=== PATIENT | female | born 1940 | race Asian ===

== ENCOUNTER → 2022-10-30 | Outpatient (CLI) | payer OTHER ==
[2022-10-30 09:07] LABS: Basophils # (auto) 0.1 10 ^3/uL (0-0.2); Basophils % (auto) 1.7 % (0.0-2.0); Eosinophils # (auto) 0.2 10 ^3/uL (0-0.8); Eosinophils % (auto) 6.2 % (0.0-7.0); Hematocrit 46.6 % (36.0-46.0); Hemoglobin 15.2 g/dL (12.2-16.2); Lymphocytes # (auto) 1.7 10 ^3/uL (0.4-5.4); Lymphocytes % (auto) 44.6 % (10.0-50.0); Mean Corpuscular Hemoglobin 31.7 pg (28.0-32.0); Mean Corpuscular Hgb Conc. 32.6 g/dL (32.0-36.0); Mean Corpuscular Volume 97.1 fL (80.0-100.0); Monocytes # (auto) 0.3 10 ^3/uL (0-1.3); Neutrophils # (auto) 1.6 10 ^3/uL (1.6-8.6); Neutrophils % (auto) 40.5 % (37.0-80.0); Nucleated Red Blood Cells % 0.3 %; White Blood Cell 3.9 10^3/uL (4.4-10.8)
[2022-10-30 09:30] LABS: Urine Bacteria FEW /hpf (None Seen); Urine Blood Negative /uL (Negative); Urine Specific Gravity 1.014 (1.001-1.035); Urine WBC 5 /hpf (0 - 5)
[2022-10-30 09:37] LABS: Potassium 4.2 mmol/L (3.5-5.1)
[2022-10-30 09:44] LABS: Albumin 3.9 g/dL (3.4-5.0); BUN/Creatinine Ratio 27.5 (10.0-20.0); Bilirubin, Total 0.7 mg/dL (0.2-1.0); Calcium 9.3 mg/dL (8.5-10.1); Total Protein 7.5 g/dL (6.4-8.2); Uric Acid 7.2 mg/dL (2.6-6.0)
== END | disposition home or self-care (01) ==
LOC: LAB 08:24
PROVIDERS: ATTEND Internal Medicine
DX: Z00.00 Encounter for general adult medical examination without abnormal findings (principal); E11.69 Type 2 diabetes mellitus with other specified complication; E78.5 Hyperlipidemia, unspecified; E55.9 Vitamin D deficiency, unspecified; M10.9 Gout, unspecified
CPT/HCPCS: 36415; 80053; 80061; 81001; 82043; 82306; 82550; 83036; 84436; 84443; 84550; 85025; 87086

== ENCOUNTER → 2023-02-24 | Outpatient (CLI) | payer OTHER ==
[2023-02-24 07:51] LABS: Basophils # (auto) 0.1 10 ^3/uL (0-0.2); Eosinophils # (auto) 0.3 10 ^3/uL (0-0.8); Eosinophils % (auto) 7.9 % (0.0-7.0); Hematocrit 43.3 % (36.0-46.0); Hemoglobin 14.3 g/dL (12.2-16.2); Lymphocytes # (auto) 1.9 10 ^3/uL (0.4-5.4); Lymphocytes % (auto) 45.3 % (10.0-50.0); Monocytes # (auto) 0.4 10 ^3/uL (0-1.3); Monocytes % (auto) 9.9 % (0.0-12.0); Neutrophils # (auto) 1.5 10 ^3/uL (1.6-8.6); Neutrophils % (auto) 34.9 % (37.0-80.0); Red Blood Cells 4.46 10^6/uL (4.0-5.20); Red Cell Distribution Width 13.8 % (11.8-14.3); White Blood Cell 4.2 10^3/uL (4.4-10.8)
[2023-02-24 08:11] LABS: Urine Bacteria NONE SEEN /hpf (None Seen); Urine Blood Negative /uL (Negative); Urine Clarity Clear (Clear); Urine Color Yellow (Yellow); Urine Protein, UAD Negative (Negative); Urine Specific Gravity 1.017 (1.001-1.035); Urine Urobilinogen Normal (Negative); Urine WBC 7 /hpf (0 - 5); Urine pH 5.5 (5.0-8.0)
[2023-02-24 08:42] LABS: Albumin 3.7 g/dL (3.4-5.0); Calcium 8.9 mg/dL (8.5-10.1); Potassium 4.3 mmol/L (3.5-5.1)
[2023-02-24 08:48] LABS: BUN/Creatinine Ratio 21.3 (10.0-20.0); Bilirubin, Total 0.6 mg/dL (0.2-1.0); Total Protein 7.1 g/dL (6.4-8.2); Uric Acid 7.7 mg/dL (2.6-6.0)
== END | disposition home or self-care (01) ==
LOC: LAB 07:06
PROVIDERS: ATTEND Internal Medicine
DX: Z00.00 Encounter for general adult medical examination without abnormal findings (principal); E11.69 Type 2 diabetes mellitus with other specified complication; E78.5 Hyperlipidemia, unspecified; M10.9 Gout, unspecified; E55.9 Vitamin D deficiency, unspecified
CPT/HCPCS: 36415; 80053; 80061; 81001; 82043; 82306; 82550; 83036; 84436; 84443; 84550; 85025; 87086

== ENCOUNTER 2023-06-07 02:47 | Inpatient (IN) | payer OTHER ==
[~2023-06-07] VITALS: Ht 154.9 cm; Wt 80.1 kg
[2023-06-07] VITALS (11 sets, daily range): BP systolic 68–130; BP diastolic 24–60; PULSE 72–107; RESP 13–40; TEMP 100.5; O2SAT 87–93
[2023-06-07 04:01] LABS: Basophils # (auto) 0 10 ^3/uL (0-0.2); Basophils % (auto) 0.3 % (0.0-2.0); Eosinophils # (auto) 0.1 10 ^3/uL (0-0.8); Eosinophils % (auto) 1.5 % (0.0-7.0); Hematocrit 45.4 % (36.0-46.0); Lymphocytes # (auto) 0.4 10 ^3/uL (0.4-5.4); Lymphocytes % (auto) 10.3 % (10.0-50.0); Mean Corpuscular Hemoglobin 32.6 pg (28.0-32.0); Mean Corpuscular Volume 98.9 fL (80.0-100.0); Monocytes # (auto) 0 10 ^3/uL (0-1.3); Monocytes % (auto) 1.3 % (0.0-12.0); Neutrophils # (auto) 3.2 10 ^3/uL (1.6-8.6); Neutrophils % (auto) 86.6 % (37.0-80.0); Nucleated Red Blood Cells % 0.1 %; Red Blood Cells 4.59 10^6/uL (4.0-5.20); White Blood Cell 3.7 10^3/uL (4.4-10.8)
[2023-06-07 04:14] LABS: Rapid Influenza A Negative (Negative); Rapid Influenza B Negative (Negative)
[2023-06-07 04:17] LABS: COVID19 ANTIGEN SOFIA FIA POSITIVE (NEGATIVE)
[2023-06-07 04:32] LABS: Alanine Aminotransferase 36 U/L (7-40); Albumin 4.2 g/dL (3.2-4.8); Alkaline Phosphatase 63 U/L (46-116); Anion Gap 10 (5-15); Aspartate Aminotransferase 54 U/L (13-40); BUN/Creatinine Ratio 24.2 (10.0-20.0); Bilirubin, Total 0.6 mg/dL (0.2-1.0); Blood Urea Nitrogen 23 mg/dL (9-23); Calcium 8.8 mg/dL (8.7-10.4); Carbon Dioxide 22 mmol/L (20-30); Chloride 109 mmol/L (98-107); Glucose 138 mg/dL (74-106); Potassium 4.9 mmol/L (3.5-5.1); Sodium 141 mmol/L (136-145); Total Protein 6.7 g/dL (5.7-8.2)
[2023-06-07] MEDS ORDERED: ACETAMINOPHEN 500 MG TAB PO PRN (05:45)
[2023-06-07] MEDS ORDERED: REMDESIVIR PER PHARMACY 0 ML IV SCH (05:45)
[2023-06-07] MEDS ORDERED: ALBUTEROL SULF HFA 90MCG INH 200DOSE IN PRN ×2 (05:45)
[2023-06-07 06:57] LABS: Urine Bacteria NONE SEEN /hpf (None Seen); Urine Blood Negative /uL (Negative); Urine Clarity Clear (Clear); Urine Color Yellow (Yellow); Urine Hyaline Cast FEW /lpf (0 - 2); Urine Mucus FEW (None Seen); Urine Protein, UAD 1+ (Negative); Urine Specific Gravity 1.022 (1.001-1.035); Urine Urobilinogen Normal (Negative); Urine WBC 13 /hpf (0 - 5); Urine pH 5.5 (5.0-8.0)
[2023-06-07] MEDS ORDERED: DexAMETHasone SOD PHOS 10MG/1ML VIAL INJ IV ONE (07:00)
[2023-06-07] MEDS ORDERED: ZINC SULFATE 220mg CAP or TAB PO ONE (07:00)
[2023-06-07] MEDS ORDERED: HEPARIN SODIUM (PORCINE) 5000 UNITS/ML 1ML VIAL IV ONE (07:00)
[2023-06-07] MEDS ORDERED: PIPERACILLIN-TAZOB 3.375GM 100 ML IV ONE (07:00)
[2023-06-07] MEDS ORDERED: PROMETHAZINE W/CODEINE 5 ML ORAL SYRUP PO ONE (07:00)
[2023-06-07] MEDS ORDERED: AZITHROMYCIN 500MG/ 250ML 250 ML IV ONE (07:00)
[2023-06-07 07:03] LABS: Base Excess -10.8 mmol/L (-2.0-2.0)
[2023-06-07 07:04] LABS: CRP High Sensitivity 0.06 mg/dL (<1.0)
[2023-06-07 07:14] LABS: Magnesium 1.4 mg/dL (1.6-2.6)
[2023-06-07 08:14] LABS: Lactic Acid w/Reflex 4.4 mmol/L (0.4-2.0)
[2023-06-07] MEDS ORDERED: SODIUM CHLORIDE 0.9% 500 ML IV ONE (08:15)
[2023-06-07] MEDS ORDERED: IOHEXOL 350 MG/ML 100ML IJ ONE (09:02)
[2023-06-07] MEDS ORDERED: NOREPINEPHRINE 8 MG/250ML KIT 250 ML IV ONE (09:07)
[2023-06-07] MEDS: NOREPINEPHRINE 8 MG/250ML KIT 250 ML IV SCH ×2 (09:21→16:44)
[2023-06-07 09:25] LABS: Base Excess -12.7 mmol/L (-2.0-2.0)
[2023-06-07] MEDS ORDERED: REMDESIVIR 200 MG in NS 210ml LOADING DOSE ADULT IV ONE (10:00)
[2023-06-07] MEDS: ZINC SULFATE 220mg CAP or TAB PO SCH (10:00)
[2023-06-07] MEDS: ASCORBIC ACID 1,000 MG TAB PO SCH (10:00)
[2023-06-07] MEDS ORDERED: BUDESONIDE (INHALATION) 180 MCG IH IN SCH (10:00)
[2023-06-07] MEDS: CHOLECALCIFEROL (VITD3) 2,000 UNIT CAP/TAB PO SCH (10:00)
[2023-06-07 10:52] LABS: Thyroid Stimulating Hormone 2.28 uIU/mL (0.358-3.74)
[2023-06-07] MEDS ORDERED: DEXTROSE (50%) 50ML SYRG IV PRN (11:00)
[2023-06-07] MEDS ORDERED: NITROGLYCERIN 0.4 MG SL TAB SL PRN (11:00)
[2023-06-07] MEDS ORDERED: MORPHINE SULFATE INJ 2 MG/ml SYRG IV PRN (11:00)
[2023-06-07] MEDS ORDERED: SUCCINYLCHOLINE CHLORIDE 20 MG/ML 10ML VIAL IV ONE (11:45)
[2023-06-07] MEDS ORDERED: ETOMIDATE (2MG/ML) 20ML VIAL IV ONE (11:45)
[2023-06-07] MEDS: ACCU-CHEK COMFORT CURVE STRIP VI SCH ×2 (12:00→17:47)
[2023-06-07] MEDS: MIDAZOLAM DRIP 50 mg/50mL 50 ML IV SCH ×3 (12:25→23:00)
[2023-06-07] MEDS ORDERED: PROPOFOL 100 ML IV ONE (13:00)
[2023-06-07] MEDS: PROPOFOL 100 ML IV SCH (13:25)
[2023-06-07] MEDS: SODIUM CHLOR 0.9% PF (SALINE LOCK) 10ML VIAL/SYR IV SCH ×2 (13:27→22:00)
[2023-06-07] MEDS: cefTRIAXone 1GM/50ML D5W 50 ML IV SCH (13:33)
[2023-06-07] MEDS: DexAMETHasone SOD PHOS 10MG/1ML VIAL INJ IV SCH (13:33)
[2023-06-07] MEDS: InsuLIN REG 1unit/0.01ml Soln (100units/ml) SC SCH ×2 (13:42→17:47)
[2023-06-07] MEDS ORDERED: ACETAMINOPHEN 650 MG RECT SUPP PR PRN (14:15)
[2023-06-07] MEDS: MAGNESIUM SULFATE 1GM/100ML 100 ML IV SCH ×2 (16:01→16:42)
[2023-06-07] MEDS: SOD CHL 0.45% 1,000 ML IV SCH (17:11)
[2023-06-07] MEDS ORDERED: ACETAMINOPHEN IV 1000 MG/100ML (10MG/ML) IV ONE (19:00)
[2023-06-07] MEDS: ALBUTEROL MEDNEB 2.5 mg/3ml NEB NEB SCH (19:19)
[2023-06-07] MEDS ORDERED: SODIUM BICARBONATE 8.4 % INJ 50ML VIAL IV SCH (20:45)
[2023-06-07] MEDS: PHENYLEPHRINE IV 250 ML IV SCH ×2 (20:59→23:35)
[2023-06-07] MEDS ORDERED: BUDESONIDE (INHALATION) 0.5 MG/2 ML NEB NEB SCH (22:00)
[2023-06-07] MEDS ORDERED: SODIUM BICARBONATE 8.4 % INJ 50ML VIAL IV ONE (22:15)
[2023-06-08] VITALS (63 sets, daily range): BP systolic 81–222; BP diastolic 36–77; PULSE 82–129; RESP 17–38; TEMP 95.7–98.6; O2SAT 85–98
[2023-06-08] MEDS: ACCU-CHEK COMFORT CURVE STRIP VI SCH ×4 (00:29→18:00)
[2023-06-08] MEDS: InsuLIN REG 1unit/0.01ml Soln (100units/ml) SC SCH ×4 (00:30→18:00)
[2023-06-08] MEDS ORDERED: SODIUM BICARBONATE 8.4 % INJ 50ML VIAL IV ONE ×3 (01:15→18:30)
[2023-06-08 01:35] LABS: Base Excess -16.2 mmol/L (-2.0-2.0)
[2023-06-08] MEDS: SODIUM CHLOR 0.9% PF (SALINE LOCK) 10ML VIAL/SYR IV SCH ×3 (06:00→22:00)
[2023-06-08] MEDS: SOD CHL 0.45% 1,000 ML IV SCH (06:20)
[2023-06-08] MEDS: ALBUTEROL MEDNEB 2.5 mg/3ml NEB NEB SCH ×3 (06:26→22:02)
[2023-06-08 06:27] LABS: Albumin 3.2 g/dL (3.2-4.8); Alkaline Phosphatase 36 U/L (46-116); Anion Gap 17 (5-15); Bilirubin, Total 0.5 mg/dL (0.2-1.0); Calcium 7.4 mg/dL (8.5-10.1); Carbon Dioxide 19 mmol/L (20-30); Chloride 101 mmol/L (98-107); Glucose 239 mg/dL (74-106); Sodium 137 mmol/L (136-145); Total Protein 5.4 g/dL (5.7-8.2)
[2023-06-08 06:51] LABS: Alanine Aminotransferase 33 U/L (7-40); Aspartate Aminotransferase 129 U/L (13-40); BUN/Creatinine Ratio 10.2 (10.0-20.0); Blood Urea Nitrogen 28 mg/dL (9-23); Potassium 4.5 mmol/L (3.5-5.1)
[2023-06-08] MEDS: PHENYLEPHRINE IV 250 ML IV SCH ×2 (07:55→12:00)
[2023-06-08 08:06] LABS: Hematocrit 49.2 % (36.0-46.0); Hemoglobin 15.7 g/dL (12.2-16.2); Mean Corpuscular Hemoglobin 32.2 pg (28.0-32.0); Mean Corpuscular Volume 100.6 fL (80.0-100.0); Red Blood Cells 4.89 10^6/uL (4.0-5.20); Red Cell Distribution Width 15.5 % (11.8-14.3); White Blood Cell 13.8 10^3/uL (4.4-10.8)
[2023-06-08 08:12] LABS: Basophils % (manual) 0 (0.0-2.0); Blast Cells 0; Eosinophils % (manual) 0 (0-7); Metamyelocytes % 0; Myelocytes % 0; Promyelocytes % 0; Reactive Lymphocytes 0
[2023-06-08] MEDS ORDERED: ACETAMINOPHEN 325 MG TAB PO PRN (08:30)
[2023-06-08] MEDS: fentaNYL Drip 2500mCg/250mlNS 250 ML IV SCH (08:35)
[2023-06-08 08:40] LABS: Base Excess -8.8 mmol/L (-2.0-2.0)
[2023-06-08 08:52] LABS: Band Neutrophils % (manual) 31; Lymphocytes % (manual) 12 (10.0-50.0); Monocytes % (manual) 8 (0-12)
[2023-06-08 08:53] LABS: Giant Platelets Few; Platelet Estimate Decreased
[2023-06-08] MEDS: cefTRIAXone 1GM/50ML D5W 50 ML IV SCH (09:45)
[2023-06-08] MEDS ORDERED: ENOXAPARIN SOD 40 MG/0.4 ML SYRINGE SC SCH (10:00)
[2023-06-08] MEDS: ZINC SULFATE 220mg CAP or TAB PO SCH (10:30)
[2023-06-08] MEDS: ASCORBIC ACID 1,000 MG TAB PO SCH (10:30)
[2023-06-08] MEDS: CHOLECALCIFEROL (VITD3) 2,000 UNIT CAP/TAB PO SCH (10:30)
[2023-06-08] MEDS ORDERED: FUROSEMIDE 40 MG/4 ML VIAL IV SCH (10:30)
[2023-06-08] MEDS: DexAMETHasone SOD PHOS 10MG/1ML VIAL INJ IV SCH (10:30)
[2023-06-08] MEDS: MULTIPLE VITAMIN TAB PO SCH (10:30)
[2023-06-08] MEDS: AZITHROMYCIN 500MG/ 250ML 250 ML IV SCH (12:01)
[2023-06-08 12:03] LABS: Base Excess -8.3 mmol/L (-2.0-2.0)
[2023-06-08] MEDS: PROPOFOL 100 ML IV SCH ×3 (12:49→21:55)
[2023-06-08] MEDS ORDERED: TOCILIZUMAB 400 MG in SODIUM CHL 0.9% 80 ML IV ONE (13:00)
[2023-06-08] MEDS: MIDAZOLAM DRIP 50 mg/50mL 50 ML IV SCH ×3 (13:04→20:36)
[2023-06-08] MEDS: NOREPINEPHRINE BITARTRATE 32 MG in SODIUM CHL 0.9% 218 ML IV SCH (13:04)
[2023-06-08] MEDS ORDERED: DOPamine 1600MCG/ML D5W 250 ML IV SCH (13:15)
[2023-06-08] MEDS: SODIUM BICARBONATE 50ML VIAL 50 ML in SOD CHL 0.45% 1,000 ML IV SCH (13:39)
[2023-06-08] MEDS: PHENYLEPHRINE INJ 80 MG in SODIUM CHL 0.9% 242 ML IV SCH (13:40)
[2023-06-08] MEDS: REMDESIVIR 100mg 100 MG in SODIUM CHL 0.9% 230 ML IV SCH (15:00)
[2023-06-08] MEDS ORDERED: ROCURONIUM 10MG/ML 10ML VIAL IV ONE (15:59)
[2023-06-08 16:09] LABS: Protein, Urine 215.3 mg/dL (0.0-11.9)
[2023-06-08 16:12] LABS: Creatinine, Urine 149.4 mg/dL (30.0-125.0); Urine Protein/Creatinine Ratio 1.44
[2023-06-08 18:25] LABS: Base Excess -12.2 mmol/L (-2.0-2.0)
[2023-06-08] MEDS ORDERED: AMIODARONE 450mg/250ml AE 250 ML IV SCH (18:30)
[2023-06-08] MEDS ORDERED: METF-370 PO (21:11)
[2023-06-08] MEDS ORDERED: ATEN-60 PO (21:11)
[2023-06-08] MEDS ORDERED: LOSA25TA15 PO (21:11)
[2023-06-08] MEDS ORDERED: ATOR10TA PO (21:11)
[2023-06-08] MEDS ORDERED: AMLO1TAB22 PO (21:11)
[2023-06-09] VITALS (104 sets, daily range): BP systolic 72–290; BP diastolic -43–117; PULSE 71–110; RESP 19–20; TEMP 96.8–99.7; O2SAT 84–99
[2023-06-09] MEDS: MIDAZOLAM DRIP 50 mg/50mL 50 ML IV SCH ×7 (00:33→22:35)
[2023-06-09] MEDS: AMIODARONE 450mg/250ml AE 250 ML IV SCH ×2 (00:33→17:26)
[2023-06-09] MEDS: SODIUM BICARBONATE 50ML VIAL 50 ML in SOD CHL 0.45% 1,000 ML IV SCH ×3 (00:38→20:03)
[2023-06-09] MEDS: PROPOFOL 100 ML IV SCH ×5 (01:48→20:03)
[2023-06-09] MEDS: NOREPINEPHRINE BITARTRATE 32 MG in SODIUM CHL 0.9% 218 ML IV SCH ×2 (03:56→22:35)
[2023-06-09 04:19] LABS: Chloride 100 mmol/L (98-107); Phosphorus 6.1 mg/dL (2.4-5.1); Sodium 134 mmol/L (136-145)
[2023-06-09 04:20] LABS: BUN/Creatinine Ratio 11.5 (10.0-20.0); Potassium 4.9 mmol/L (3.5-5.1)
[2023-06-09 04:21] LABS: Blood Urea Nitrogen 39 mg/dL (9-23)
[2023-06-09 04:23] LABS: Calcium 5.9 mg/dL (8.7-10.4)
[2023-06-09 04:41] LABS: Alanine Aminotransferase 33 U/L (7-40); Albumin 2.5 g/dL (3.2-4.8); Alkaline Phosphatase 76 U/L (46-116); Anion Gap 11 (5-15); Aspartate Aminotransferase 123 U/L (13-40); BUN/Creatinine Ratio 10.9 (10.0-20.0); Bilirubin, Total 0.5 mg/dL (0.2-1.0); Blood Urea Nitrogen 37 mg/dL (9-23); Carbon Dioxide 22 mmol/L (20-30); Chloride 99 mmol/L (98-107); Glucose 156 mg/dL (74-106); Potassium 4.3 mmol/L (3.5-5.1); Sodium 132 mmol/L (136-145)
[2023-06-09 04:42] LABS: Total Protein 4.3 g/dL (5.7-8.2)
[2023-06-09 04:45] LABS: Glucose 183 mg/dL (74-106)
[2023-06-09 04:47] LABS: Hemoglobin 14.5 g/dL (12.2-16.2); Mean Corpuscular Hemoglobin 32.7 pg (28.0-32.0); Mean Corpuscular Hgb Conc. 33.8 g/dL (32.0-36.0); Mean Corpuscular Volume 96.9 fL (80.0-100.0); Red Blood Cells 4.44 10^6/uL (4.0-5.20); White Blood Cell 20.5 10^3/uL (4.4-10.8)
[2023-06-09 04:54] LABS: Basophils % (manual) 0 (0.0-2.0); Blast Cells 0; Eosinophils % (manual) 0 (0-7); Myelocytes % 0; Promyelocytes % 0; Reactive Lymphocytes 0
[2023-06-09 05:09] LABS: Calcium 5.8 mg/dL (8.7-10.4)
[2023-06-09 05:20] LABS: Anion Gap 16 (5-15); Carbon Dioxide 18 mmol/L (20-30)
[2023-06-09] MEDS: ACCU-CHEK COMFORT CURVE STRIP VI SCH ×5 (05:50→23:45)
[2023-06-09] MEDS: SODIUM CHLOR 0.9% PF (SALINE LOCK) 10ML VIAL/SYR IV SCH ×3 (05:50→22:34)
[2023-06-09] MEDS: InsuLIN REG 1unit/0.01ml Soln (100units/ml) SC SCH ×5 (05:50→23:46)
[2023-06-09] MEDS: ALBUTEROL MEDNEB 2.5 mg/3ml NEB NEB SCH ×3 (06:10→19:02)
[2023-06-09] MEDS: ROCURONIUM 10MG/ML 10ML VIAL IV PRN ×2 (06:33→16:00)
[2023-06-09] MEDS: CALCIUM GLUC 1,000mg/50ml-NS 50 ML IV SCH ×2 (08:11→10:02)
[2023-06-09 08:49] LABS: Base Excess -7.5 mmol/L (-2.0-2.0)
[2023-06-09 09:19] LABS: Band Neutrophils % (manual) 19; Lymphocytes % (manual) 3 (10.0-50.0); Metamyelocytes % 27; Monocytes % (manual) 2 (0-12); Platelet Estimate Decreased
[2023-06-09] MEDS ORDERED: CALCIUM GLUC 1,000mg/50ml-NS 50 ML IV ONE (09:53)
[2023-06-09] MEDS: PANTOPRAZOLE 40 MG/10 ML VIAL INJ IV SCH (10:06)
[2023-06-09] MEDS: MULTIPLE VITAMIN TAB PO SCH (10:06)
[2023-06-09] MEDS: ZINC SULFATE 220mg CAP or TAB PO SCH (10:06)
[2023-06-09] MEDS: DexAMETHasone SOD PHOS 10MG/1ML VIAL INJ IV SCH (10:06)
[2023-06-09] MEDS: CHOLECALCIFEROL (VITD3) 2,000 UNIT CAP/TAB PO SCH (10:06)
[2023-06-09] MEDS: ASCORBIC ACID 1,000 MG TAB PO SCH (10:07)
[2023-06-09] MEDS: FUROSEMIDE INJECTION 100 MG in D5W 5% 100 ML IV SCH ×2 (11:04→18:07)
[2023-06-09] MEDS: cefTRIAXone 1GM/50ML D5W 50 ML IV SCH (11:05)
[2023-06-09] MEDS: AZITHROMYCIN 500MG/ 250ML 250 ML IV SCH (12:12)
[2023-06-09] MEDS: REMDESIVIR 100mg 100 MG in SODIUM CHL 0.9% 230 ML IV SCH (15:00)
[2023-06-09] MEDS: fentaNYL Drip 2500mCg/250mlNS 250 ML IV SCH ×2 (15:30)
[2023-06-09] MEDS: PHENYLEPHRINE INJ 80 MG in SODIUM CHL 0.9% 242 ML IV SCH (17:26)
[2023-06-09 19:26] LABS: Base Excess -7.7 mmol/L (-2.0-2.0)
[2023-06-10] VITALS (63 sets, daily range): BP systolic 27–137; BP diastolic 13–70; PULSE 59–135; RESP 0–20; TEMP 97.2–99.3; O2SAT 85–96
[2023-06-10] MEDS: PROPOFOL 100 ML IV SCH ×3 (00:11→11:31)
[2023-06-10] MEDS: MIDAZOLAM DRIP 50 mg/50mL 50 ML IV SCH ×3 (02:39→10:31)
[2023-06-10] MEDS: FUROSEMIDE INJECTION 100 MG in D5W 5% 100 ML IV SCH (03:25)
[2023-06-10 04:02] LABS: Mean Corpuscular Volume 97.7 fL (80.0-100.0)
[2023-06-10 04:27] LABS: Hematocrit 39.9 % (36.0-46.0); Mean Corpuscular Hemoglobin 34.3 pg (28.0-32.0); Mean Corpuscular Hgb Conc. 35.2 g/dL (32.0-36.0); Red Blood Cells 4.08 10^6/uL (4.0-5.20); White Blood Cell 21.3 10^3/uL (4.4-10.8)
[2023-06-10 04:35] LABS: Basophils % (manual) 0 (0.0-2.0); Blast Cells 0; Eosinophils % (manual) 0 (0-7); Metamyelocytes % 0; Myelocytes % 0; Promyelocytes % 0; Reactive Lymphocytes 0
[2023-06-10] MEDS: ACCU-CHEK COMFORT CURVE STRIP VI SCH ×2 (05:53→12:51)
[2023-06-10] MEDS: SODIUM CHLOR 0.9% PF (SALINE LOCK) 10ML VIAL/SYR IV SCH (05:53)
[2023-06-10] MEDS: InsuLIN REG 1unit/0.01ml Soln (100units/ml) SC SCH ×2 (06:02→12:51)
[2023-06-10] MEDS: AMIODARONE 450mg/250ml AE 250 ML IV SCH (06:05)
[2023-06-10 06:50] LABS: Band Neutrophils % (manual) 24; Lymphocytes % (manual) 4 (10.0-50.0); Monocytes % (manual) 1 (0-12)
[2023-06-10 06:51] LABS: Platelet Estimate Markedly Decreased
[2023-06-10] MEDS: ALBUTEROL MEDNEB 2.5 mg/3ml NEB NEB SCH (06:56)
[2023-06-10] MEDS: fentaNYL Drip 2500mCg/250mlNS 250 ML IV SCH (07:16)
[2023-06-10] MEDS: SODIUM BICARBONATE 50ML VIAL 50 ML in SOD CHL 0.45% 1,000 ML IV SCH (07:56)
[2023-06-10 09:41] LABS: Base Excess -12.8 mmol/L (-2.0-2.0)
[2023-06-10] MEDS: PANTOPRAZOLE 40 MG/10 ML VIAL INJ IV SCH (10:37)
[2023-06-10] MEDS: cefTRIAXone 1GM/50ML D5W 50 ML IV SCH (10:37)
[2023-06-10] MEDS: DexAMETHasone SOD PHOS 10MG/1ML VIAL INJ IV SCH (10:37)
[2023-06-10] MEDS: ZINC SULFATE 220mg CAP or TAB PO SCH (10:38)
[2023-06-10] MEDS: MULTIPLE VITAMIN TAB PO SCH (10:38)
[2023-06-10] MEDS: CHOLECALCIFEROL (VITD3) 2,000 UNIT CAP/TAB PO SCH (10:38)
[2023-06-10] MEDS: ASCORBIC ACID 1,000 MG TAB PO SCH (10:38)
[2023-06-10] MEDS: AZITHROMYCIN 500MG/ 250ML 250 ML IV SCH (11:33)
[2023-06-10] MEDS: PHENYLEPHRINE INJ 80 MG in SODIUM CHL 0.9% 242 ML IV SCH (12:53)
[2023-06-10] MEDS ORDERED: LORazepam 2MG/ML-1ML VIAL IV PRN (13:30)
[2023-06-10] MEDS ORDERED: MORPHINE SULFATE INJ 2 MG/ml SYRG IV PRN (13:30)
== END 2023-06-10 20:04 | DRG 871 ==
LOC: ER 02:47 → TELE 10:59 → ICU WEST 06-08 12:20
PROVIDERS: ADMIT Nurse Practitioner Family; ATTEND Nurse Practitioner Acute Care
PROC: 0BH17EZ Insertion of Endotracheal Airway into Trachea, Via Natural or Artificial Opening (ICD-10-PCS; principal; 2023-06-07)
PROC: 5A1945Z Respiratory Ventilation, 24-96 Consecutive Hours (ICD-10-PCS; 2023-06-07)
PROC: 02HV33Z Insertion of Infusion Device into Superior Vena Cava, Percutaneous Approach (ICD-10-PCS; 2023-06-07)
PROC: 5A0935A Assistance with Respiratory Ventilation, Less than 24 Consecutive Hours, High Flow/Velocity Cannula (ICD-10-PCS; 2023-06-07)
PROC: XW033E5 Introduction of Remdesivir Anti-infective into Peripheral Vein, Percutaneous Approach, New Technology Group 5 (ICD-10-PCS; 2023-06-07)
PROC: 04HY32Z Insertion of Monitoring Device into Lower Artery, Percutaneous Approach (ICD-10-PCS; 2023-06-08)
DX: A41.89 Other specified sepsis (principal); G93.41 Metabolic encephalopathy; J12.82 Pneumonia due to coronavirus disease 2019; U07.1 COVID-19; J96.01 Acute respiratory failure with hypoxia; N17.0 Acute kidney failure with tubular necrosis; R65.21 Severe sepsis with septic shock; G93.1 Anoxic brain damage, not elsewhere classified; E87.20 Acidosis, unspecified; N39.0 Urinary tract infection, site not specified; J98.11 Atelectasis; Z66 Do not resuscitate; E78.5 Hyperlipidemia, unspecified; E83.42 Hypomagnesemia; D69.6 Thrombocytopenia, unspecified; F17.200 Nicotine dependence, unspecified, uncomplicated; H57.02 Anisocoria; E11.65 Type 2 diabetes mellitus with hyperglycemia; I12.9 Hypertensive chronic kidney disease with stage 1 through stage 4 chronic kidney disease, or unspecified chronic kidney disease; E11.22 Type 2 diabetes mellitus with diabetic chronic kidney disease; N18.9 Chronic kidney disease, unspecified; I48.0 Paroxysmal atrial fibrillation; Z82.49 Family history of ischemic heart disease and other diseases of the circulatory system; Z83.3 Family history of diabetes mellitus; Z88.2 Allergy status to sulfonamides
CPT/HCPCS: 31500; 36415; 36556; 36600; 71045; 76775; 80048; 80053; 81001; 82306; 82570; 82728; 82805; 82962; 83605; 83615; 83735; 83970; 84100; 84156; 84300; 84443; 84484; 85007; 85025; 85027; 85379; 86141; 87040; 87081; 87426; 87804; 93005; 93306; 93970; 94002; 94003; 94640; 96365; 96367; 96375; 99291; C9113; G0378; J0131; J0330; J0696; J1100; J1815; J2250; J2704; J7060